=== PATIENT | female | born 1945 | race Caucasian/White ===

== ENCOUNTER 2021-10-07 21:24 | Inpatient (IN) | payer MEDICARE, MEDICAID ==
[~2021-10-07] VITALS: Ht 154.9 cm; Wt 72.6 kg
[2021-10-07] MEDS ORDERED: MELATONIN 3 MG TABLET PO PRN (21:45)
[2021-10-07] MEDS ORDERED: MILK OF MAGNESIA 400 MG/5 ML 30 ML UDC PO PRN (21:45)
[2021-10-07] MEDS ORDERED: ONDANSETRON 4 MG/2 ML (SDV) Z0FRAN IV PRN (21:45)
[2021-10-07] MEDS ORDERED: VANCOMYCIN INJECTION 1,000 MG in NS (IVPB) 250 ML IV SCH (21:45)
[2021-10-07] MEDS ORDERED: diphenhydrAMINE 25 MG TAB (BENADRYL) PO PRN (21:45)
[2021-10-07] MEDS ORDERED: diphenhydrAMINE 50 MG/ML INJ (BENADRYL) IVP PRN (21:45)
[2021-10-07] MEDS ORDERED: MEROPENEM 1,000 MG in NS (IVPB) 100 ML IV SCH (21:45)
[2021-10-07] MEDS ORDERED: NS IV 1000 ML 1,800 ML IV ONE (21:45)
[2021-10-07] MEDS ORDERED: morphine INJ 4 MG/ML 1 ML (VIAL/SYRINGE) IV PRN (21:45)
[2021-10-07] MEDS ORDERED: CALCIUM CARBONATE 500 MG (TUMS) TAB.CHEW PO PRN (21:45)
[2021-10-07] MEDS ORDERED: LACTULOSE SYRUP 10GM/15ML (ENULOSE) 30ML UDC PO PRN (21:45)
[2021-10-07] MEDS ORDERED: polyethylene glycoL POWDER 17 GM (MIRALAX) PACK PO PRN (21:45)
[2021-10-07] MEDS ORDERED: BISACODYL 10 MG SUPP (DULCOLAX) PR PRN (21:45)
[2021-10-07] MEDS ORDERED: ONDANSETRON 4 MG (ZOFRAN) ORAL DISSOLVE TAB PO PRN (21:45)
[2021-10-07] MEDS ORDERED: ANTACID SUSP 30 ML UDC (MYLANTA) PO PRN (21:45)
[2021-10-07] MEDS ORDERED: ACETAMINOPHEN 325 MG TABLET PO PRN (21:45)
[2021-10-07] MEDS ORDERED: ENOXAPARIN 100 MG/1 ML (LOVENOX) SYR SC SCH (21:45)
[2021-10-08] VITALS (7 sets, daily range): BP systolic 124–161; BP diastolic 58–82
[2021-10-08] MEDS ORDERED: ENOXAPARIN 40 MG/0.4 ML (LOVENOX) SYR SC SCH (02:30)
[2021-10-08 02:32] LABS: ABG BASE EXCESS -5.5 MMOL/L (-2.5-2.5); ABG OXYGEN SATURATION 56 % (94-100); ABG PCO2 38 MMHG (35-45); ABG TCO2 20.3 MMOL/L (21.0-31.0)
--- NOTE | 2021-10-08 02:37 | Tele-ICU Consult ---
History of Present Illness History of Present Illness Date Seen by Provider: Oct 08, 2021 Time Seen by Provider: 02:30 Date of Admission 76 y old lady presented with acute hyppoxemic resp failure in the context of COVID ( diuagnosed 3 weeks ago). Pt came as a direct admission and was started on BIPAP 14//60%. Pt is not able to have dialogue due to bipapa; info obtained from the bed side RN. Allergies and Home Medications Allergies Coded Allergies: codeine (Verified Allergy, Unknown, 10/07/21) Past Medical/Social/Family Hx Past Medical History COVID+ Review of Systems Constitutional: see HPI Focused Exam Height, Weight, BMI Height: '" Weight: lbs. oz. kg; BMI Method: Exam Exam Patient acknowledged, consented, and participated in this virtual visit which was conducted using real time audio/video Vital Signs Date Time Temp Pulse Resp B/P (MAP) Pulse Ox O2 Delivery O2 Flow Rate FiO2 10/08/21 02:22 87 36 96 60.00 Height & Weight Height: '" Weight: lbs. oz. kg; BMI Method: General Appearance: Mild Distress Assessment/Plan Assessment/Plan Acute hypoxemic resp failure in the context of COVID PNA -continue BIPAP -may need to be intubated -decadrone+ remdesivir -d dimer -lovenox: duplex of lower ext/ ct pe protocol when stable -basic labs ordered. LAMONTE JI MD Oct 08, 2021 02:37
[2021-10-08 02:38] LABS: ABG PH 7.33 (7.37-7.43); ABG PO2 35 MMHG (79-93); ALLENS TEST YES-POS; INSPIRED O2 60; PATIENT TEMP 37.7; VENTILATOR NO
[2021-10-08] MEDS: NS IV 1000 ML 1,000 ML IV SCH ×3 (03:45→22:43)
[2021-10-08 03:54] LABS: ABG BASE EXCESS -6.8 MMOL/L (-2.5-2.5); ABG OXYGEN SATURATION 98 % (94-100); ABG PCO2 34 MMHG (35-45); ABG PH 7.35 (7.37-7.43); ABG PO2 93 MMHG (79-93); ABG TCO2 18.8 MMOL/L (21.0-31.0)
[2021-10-08 03:57] LABS: INSPIRED O2 60% BIPAP; PATIENT TEMP 37.4; VENTILATOR NO
[2021-10-08] MEDS ORDERED: ENOXAPARIN 100 MG/1 ML (LOVENOX) SYR SC SCH (04:30)
[2021-10-08 04:40] LABS: BASOPHILS % (AUTO) 0 % (0-10); EOSINOPHILS % (AUTO) 0 % (0-10); HEMATOCRIT 42 % (35-52); HEMOGLOBIN 12.6 g/dL (11.5-16.0); LYMPHOCYTES # (AUTO) 0.7 10^3/uL (1.0-4.0); LYMPHOCYTES % (AUTO) 6 % (12-44); MEAN CORPUSCULAR HEMOGLOBIN 25 pg (25-34); MEAN CORPUSCULAR HGB CONC 30 g/dL (32-36); MEAN CORPUSCULAR VOLUME 83 fL (80-99); MEAN PLATELET VOLUME 10.4 fL (9.0-12.2); MONOCYTES # (AUTO) 0.5 10^3/uL (0.0-1.0); MONOCYTES % (AUTO) 4 % (0-12); NEUTROPHILS # (AUTO) 11.1 10^3/uL (1.8-7.8); NEUTROPHILS % (AUTO) 89 % (42-75); PLATELET COUNT 227 10^3/uL (130-400); WHITE BLOOD COUNT 12.5 10^3/uL (4.3-11.0)
[2021-10-08 04:43] LABS: ALBUMIN 2.9 GM/DL (3.2-4.5)
[2021-10-08 04:44] LABS: POTASSIUM 4.1 MMOL/L (3.6-5.0)
[2021-10-08 04:45] LABS: CALCIUM 8.5 MG/DL (8.5-10.1)
[2021-10-08 04:46] LABS: TOTAL PROTEIN 7.3 GM/DL (6.4-8.2)
[2021-10-08 04:48] LABS: BILIRUBIN,TOTAL 0.4 MG/DL (0.1-1.0)
[2021-10-08 04:49] LABS: PHOSPHORUS 2.1 MG/DL (2.3-4.7)
[2021-10-08 04:50] LABS: CREATININE SERUM 0.99 MG/DL (0.60-1.30)
[2021-10-08 04:52] LABS: MAGNESIUM 2.3 MG/DL (1.6-2.4)
[2021-10-08] MEDS ORDERED: VANCOMYCIN INJECTION 1,250 MG in NS (IVPB) 250 ML IV ONE (05:00)
[2021-10-08] MEDS: POTASSIUM CL 10MEQ/50ML IVPB 50 ML IV SCH (05:06)
[2021-10-08] MEDS: MAGNESIUM 1 GM/100 ML IVPB 100 ML IV SCH (05:06)
[2021-10-08] MEDS: KCL 20 MEQ TAB (K-DUR) PO SCH (05:07)
[2021-10-08] MEDS: inSUlin ASPART (NovoLOG) 1 UNIT/0.01 ML (CHARGE PER UNIT) SC SCH ×4 (05:10→22:43)
[2021-10-08] MEDS: MEROPENEM 500 MG/NS 100 ML IVPB IV SCH ×6 (05:25→22:43)
[2021-10-08 05:28] LABS: ELLIPT/OVALOCYTES SLIGHT; EOSINOPHILS % (MANUAL) 1 %; LYMPHOCYTES % (MANUAL) 10 %; MICROCYTOSIS SLIGHT; MONOCYTES % (MANUAL) 3 %; NEUTROPHILS % (MANUAL) 86 %
--- NOTE | 2021-10-08 06:20 | History & Physical-Hospitalist ---
History of Present Illness HPI/Chief Complaint Chief complaint: Acute hypoxic respiratory failure with UTI with ESBL history History of present illness: This is a 76-year-old white female who resides in a [place] [facility] [place] who had just been released from quarantine from COVID-19 but became confused and hypotensive and hypoxic so she was brought [place] [facility] after her daughter was updated on the status and offered to place her on comfort care and allow " nature to take its course" due to her chronic debility but daughter wanted her treated and at that point remained a full code. She was assessed to have UTI and sepsis with ESBL history so meropenem was started along with vancomycin to cover for Enterococcus and she is currently on BiPAP with settings of 14/8 at 65% with IV fluids for sepsis. Decadron was initiated and she remains very lethargic and very fragile and very chronically ill and debilitated. I did have a 15-minute conversation with the daughter and it was decided that we would continue the current treatment but if she worsens we would put her on comfort care we decided on DO NOT INTUBATE and DO NOT RESUSCITATE. Source: RN/MD Exam Limitations: clinical condition Date Seen 10/08/21 Time Seen by a Provider: 10:00 Attending Physician Naina Abdi DO PCP No,Local Physician Referring Physician Date of Admission Oct 08, 2021 at 01:52 Home Medications & Allergies Home Medications Reviewed patient Home Medication Reconciliation performed by pharmacy medication reconciliations quality control lab technician and/or nursing. Patients Allergies have been reviewed. Allergies Allergies Coded Allergies Sulfa (Sulfonamide Antibiotics) (Verified Allergy, Unknown, 10/08/21) codeine (Verified Allergy, Unknown, 10/07/21) Uncoded Allergies contrast dye ( Allergy, Unknown, 10/08/21) Past Dzgxmql-Qzcpfp-Uudgyx Hx Patient Social History Marrital Status: single Employed/Student: retired Smoking Status: Unknown if Ever Smoked Pt feels they are or have been: No Current Status Sensory deficits: Vision impairment Past Medical History High Cholesterol, Hypertension Dementia Kidney Infection, Bladder Infection Gastroesophageal Reflux, Irritable Bowel COVID+ Review of Systems ROS-Unable to Obtain: On BiPAP and confused Constitutional: see HPI Physical Exam Physical Exam Vital Signs Vital Signs - First Documented 10/07/21 10/08/21 21:41 02:00 Temp 37.7 Pulse 93 B/P (MAP) 148/89 O2 Delivery NIV Bilevel O2 Flow Rate 60.00 Capillary Refill : Less Than 3 Seconds Height, Weight, BMI Height: '" Weight: lbs. oz. kg; 27.75 BMI Method: General Appearance: Anxious, Chronically ill, Other (Confused) Eyes: Right Eye Normal Inspection, Right Eye PERRL HEENT: Other (BiPAP in place) Neck: Full Range of Motion, Normal Inspection, Non Tender Respiratory: Chest Non Tender, No Respiratory Distress, Accessory Muscle Use, Decreased Breath Sounds Cardiovascular: Regular Rate, Rhythm, No Edema, No Gallop, No JVD, No Murmur, Normal Peripheral Pulses Gastrointestinal: Normal Bowel Sounds, No Organomegaly, No Pulsatile Mass, Non Tender, Soft Back: Normal Inspection, No CVA Tenderness, No Vertebral Tenderness Extremity: Normal Capillary Refill, Normal Inspection, Normal Range of Motion, Non Tender, No Calf Tenderness, No Pedal Edema Neurologic/Psychiatric: Alert, No Motor/Sensory Deficits, Normal Mood/Affect, Disoriented Skin: Normal Color, Warm/Dry Lymphatic: No Adenopathy Results Results/Procedures Labs Laboratory Tests 10/08/21 04:23 10/09/21 04:20 Patient resulted labs reviewed. Assessment/Plan Admission Diagnosis Assessment: Acute hypoxic respiratory failure COVID-19 pneumonia Dementia UTI with ESBL history placed on meropenem and vancomycin empirically DNR/DNI after discussion with daughter Diabetes Hypertension Hyperlipidemia Irritable bowel syndrome constipation predominant Plan: BiPAP IV antibiotics Decadron Oxygen Admission Status: Inpatient Order (span 2 midnights) Reason for Inpatient Admission: Respiratory failure Diagnosis/Problems Diagnosis/Problems (1) COVID (2) UTI due to extended-spectrum beta lactamase (ESBL) producing Escherichia coli (3) Dementia (4) Acute respiratory failure with hypoxia (5) Sepsis NAINA ABDI DO Oct 08, 2021 06:20
--- NOTE | 2021-10-08 07:46 | Diagnostic Imaging Report ---
CHEST 1 VIEW, AP/PA ONLY Indication: Pneumonia Comparison: None available. Findings: There are few ill-defined opacities throughout both lungs. No pleural effusion or pneumothorax. Heart is not enlarged. Impression: 1. Bilateral ill-defined pulmonary opacities could be due to multifocal pneumonia, as per provided history. Advise followup PA and lateral chest radiographs in 4 weeks after appropriate medical management to ensure resolution. Dictated by: Dictated on workstation # [id number]
[2021-10-08] MEDS: ENOXAPARIN 100 MG/1 ML (LOVENOX) SYR SC SCH ×2 (08:32→22:44)
[2021-10-08] MEDS ORDERED: REMDESIVIR INJ 200 MG in NS (IVPB) 210 ML IV NR (09:00)
[2021-10-08] MEDS: guaiFENesin (MUCINEX) 600 MG TAB PO SCH ×2 (09:49→21:43)
[2021-10-08] MEDS: ASPIRIN E.C. 81 MG (ECOTRIN) TAB PO SCH (09:49)
[2021-10-08] MEDS: DOCUSATE SODIUM 100 MG (COLACE) CAP PO SCH ×2 (09:49→21:43)
[2021-10-08] MEDS: SENNOSIDES 8.6 MG (SENOKOT) TAB PO SCH ×2 (09:50→21:43)
[2021-10-08] MEDS ORDERED: RT-ALBUTEROL HFA 8.5 GM INHALER IH PRN ×2 (10:00→10:15)
--- NOTE | 2021-10-08 11:03 | Diagnostic Imaging Report ---
EXAMINATION: US Venous Lower Ext Timoteo. TECHNIQUE: Multiple real-time grayscale images were obtained over the lower extremities in various projections, bilaterally. Additional duplex Doppler and color Doppler images were also obtained. HISTORY: Swelling FINDINGS: No comparison available. The femoral vein and popliteal veins are patent bilaterally. On the left no flow is seen in the calf veins. Right-sided calf veins are patent. IMPRESSION: 1. Deep venous thrombosis of the left-sided calf veins. Dictated by: Dictated on workstation # [id number]
--- NOTE | 2021-10-08 11:59 | Tele-ICU Progress Note ---
Subjective Date Seen by a Provider: Oct 08, 2021 Time Seen by a Provider: 11:59 Sepsis Event Evaluation Height, Weight, BMI Height: '" Weight: lbs. oz. kg; 27.75 BMI Method: Focused Exam Lactate Level 10/08/21 04:23: Lactic Acid Level 1.41 Exam Exam Patient acknowledged, consented, and participated in this virtual visit which was conducted using real time audio/video Vital Signs Date Time Temp Pulse Resp B/P (MAP) Pulse Ox O2 Delivery O2 Flow Rate FiO2 10/08/21 11:00 66 21 133/66 96 NIV Bilevel 60.00 10/08/21 10:50 66 23 95 55.00 10/08/21 10:00 66 21 129/62 97 NIV Bilevel 60.00 10/08/21 09:46 37.4 65 95 60 10/08/21 09:00 65 21 124/59 95 NIV Bilevel 60.00 10/08/21 08:00 70 24 95 60.00 10/08/21 08:00 97 NIV Bilevel 60 10/08/21 08:00 71 24 122/61 95 NIV Bilevel 60.00 10/08/21 07:00 75 10/08/21 07:00 74 25 161/68 97 NIV Bilevel 60.00 10/08/21 06:00 78 21 147/70 97 NIV Bilevel 60.00 10/08/21 05:00 82 29 154/70 97 NIV Bilevel 60.00 10/08/21 04:21 95 NIV Bilevel 60 10/08/21 03:45 87 28 159/69 98 NIV Bilevel 60.00 10/08/21 03:30 37.4 10/08/21 03:15 86 29 146/79 96 NIV Bilevel 60.00 10/08/21 02:45 85 29 153/71 97 NIV Bilevel 60.00 10/08/21 02:30 86 23 129/77 95 NIV Bilevel 60.00 10/08/21 02:22 87 36 96 60.00 10/08/21 02:19 85 10/08/21 02:15 87 29 161/82 95 NIV Bilevel 60.00 10/08/21 02:00 93 32 148/89 95 NIV Bilevel 60.00 10/08/21 01:52 37.7 10/08/21 01:52 95 NIV Bilevel 60 10/08/21 01:52 37.7 28 96 NIV Bilevel 60.00 10/07/21 21:41 37.7 NIV Bilevel 60.00 I & O 10/08/21 07:00 Intake Total 25 ml Output Total 450 ml Balance -425 ml Height & Weight Height: '" Weight: lbs. oz. kg; 27.75 BMI Method: General Appearance: Mild Distress Capillary Refill: Less Than 3 Seconds Results Lab Laboratory Tests 10/08/21 04:23 Assessment/Plan Assessment/Plan (Tele-ICU Physician , Progress Note ) Available chart/ vitals / labs / Images reviewed Video assessment done using teleICU camera, rest of exam as per RN Discussed with RN , EXAM PER RN Events overnight : Afebrile FiO2 - I/O = Drips: Pressors: levo Consultants: Hospital course: 10/07 BIPAP 14/8/60%. ARF , post COVID A/P AHRF / ARDS due to severe COVID19 -BIPAP 14/8/60%. rr24 tv 600 MV 11L -prone position if able - conservative fluid strategy (aim for even or negative fluid balance [id number]-4/COVID-19 PNA - dx 3 weeks ORGAN RECOVERY COORDINATOR ago). unvaccinted --Dexamethasone -Hypercoagulable state -> lovenox full dose 10/07 , LE pending Monitor for superimposed bact PNA -10/07 Merrem Vanco Lines : (Central Line Necessity Reviewed) Ochoa: OG: Nutrition: Analgesia: Anxiety/ delirium VTE Prophylaxis: ronel full dose Stress Ulcer Prophylaxis: Glycemic Control: Plans in collaboration with bedside consultants and IM MDs. Discussed with RN to reach out if any questions or concerns A total of _ minutes of critical care time was devoted to this patient today, required to treat and/or prevent further deterioration of critical care condition ( as above) . CJ PERKINS MD Oct 08, 2021 11:59
[2021-10-08] MEDS: RT-ALBUTEROL HFA 8.5 GM INHALER IH SCH ×3 (13:53→21:35)
--- NOTE | 2021-10-08 14:26 | Consultation-Cardiology ---
HPI-Cardiology Cardiology Consultation: Date of Consultation 10/08/21 Time Seen by a Provider: 13:30 Date of Admission Attending Physician Naina Abdi DO Admitting Physician No,Local Physician Consulting Physician MADONNA MEDRANO MD, MA, FACP, FACC, FSCAI, CCDS Physicin requesting consult: Dr Abdi HPI: Chief Complaint: Reason for Cardiology consult: Elevated troponin 76 [address] woman admitted by Dr Abdi to her service for treatment of ac resp failure after having recently been diagnosed with COVID-19. She is currently on BiPAP and somewhat somnolent. Communication is difficult. She denies cp or palp or syncope. Does report shortness of breath. Denies n/v. Denies palp or syncope. Denies prior cardiac history Review of Systems-Cardiology Review of Systems Constitutional: other (communication limited because patient on BiPAP and is somnolent. To the extent a review of systems could be obtained is given above in HPI) PLO-Iordos-Qnrctk Hx Patient Social History Smoking Status: Never a Smoker Pt feels they are or have been: No Past Medical History PMH As described under Assessment. Family Medical History Family Medical History: Does not report fam h/o early CAD Allergies and Home Medications Allergies Coded Allergies: Sulfa (Sulfonamide Antibiotics) (Verified Allergy, Unknown, 10/08/21) codeine (Verified Allergy, Unknown, 10/07/21) Uncoded Allergies: contrast dye (Allergy, Unknown, 10/08/21) Patient Home Medication List Home Medication List Reviewed: Yes Physical Exam-Cardiology Physical Exam Vital Signs/I&O 10/08/21 10/08/21 10/08/21 10/08/21 02:22 02:30 02:45 03:15 Pulse 87 86 85 86 Resp 36 23 29 29 B/P (MAP) 129/77 153/71 146/79 Pulse Ox 96 95 97 96 O2 Delivery NIV Bilevel NIV Bilevel NIV Bilevel O2 Flow Rate 60.00 60.00 60.00 60.00 10/08/21 10/08/21 10/08/21 10/08/21 03:30 03:45 04:21 05:00 Temp 37.4 Pulse 87 82 Resp 28 29 B/P (MAP) 159/69 154/70 Pulse Ox 98 95 97 O2 Delivery NIV Bilevel NIV Bilevel NIV Bilevel O2 Flow Rate 60.00 60.00 FiO2 60 10/08/21 10/08/21 10/08/21 10/08/21 06:00 07:00 07:00 08:00 Pulse 78 74 75 71 Resp 21 25 24 B/P (MAP) 147/70 161/68 122/61 Pulse Ox 97 97 95 O2 Delivery NIV Bilevel NIV Bilevel NIV Bilevel O2 Flow Rate 60.00 60.00 60.00 10/08/21 10/08/21 10/08/21 10/08/21 08:00 08:00 08:00 09:00 Temp 37.0 Pulse 70 65 Resp 24 21 B/P (MAP) 124/59 Pulse Ox 97 95 95 O2 Delivery NIV Bilevel NIV Bilevel O2 Flow Rate 60.00 60.00 FiO2 60 10/08/21 10/08/21 10/08/21 10/08/21 09:46 10:00 10:50 11:00 Temp 37.4 Pulse 65 66 66 66 Resp 21 23 21 B/P (MAP) 129/62 133/66 Pulse Ox 95 97 95 96 O2 Delivery NIV Bilevel NIV Bilevel O2 Flow Rate 60.00 55.00 60.00 FiO2 60 10/08/21 10/08/21 10/08/21 10/08/21 12:00 12:00 12:00 12:49 Temp 37.0 Pulse 70 73 Resp 25 B/P (MAP) 141/62 Pulse Ox 98 97 O2 Delivery NIV Bilevel NIV Bilevel O2 Flow Rate 60.00 FiO2 60 10/08/21 10/08/21 10/08/21 13:00 13:53 14:20 Pulse 70 70 Resp 32 22 B/P (MAP) 142/66 Pulse Ox 98 96 O2 Delivery NIV Bilevel NIV Bilevel O2 Flow Rate 60.00 40.00 45.00 10/08/21 00:00 Intake Total 0 ml Balance 0 ml Capillary Refill : Less Than 3 Seconds Constitutional: other (on BiPAP, somnolent, does answer questions in monosyllables, appears oriented x 3, appears thin and frail) HEENT: PERRL, other (edentulous jaws), EOMI, hearing is well preserved Neck: non-tender, carotid pulses are 2 + bilaterally Respiratory: accessory muscle use, other (fair air entry, scattered wheezes, diminished air entry at the bases) Cardiovascular: regular rate-rhythm, S1 and S2, systolic murmur (soft VALERIA at the card base) Gastrointestinal: No tender; soft; No guarding, No rebound; audible bowel sounds Extremities: No clubbing, No cyanosis, No significant edema Neurologic/Psychiatric: other (moves all limbs equally) Skin: warm/dry; No rash on exposed areas Data Review Labs Laboratory Tests 10/08/21 02:25: Blood Gas Puncture Site RIGHT RAD, Blood Gas Patient Temperature 37.7, Arterial Blood pH 7.33*L, Arterial Blood Partial Pressure CO2 38, Arterial Blood Partial Pressure O2 35*L, Arterial Blood HCO3 19L, Arterial Blood Total CO2 20.3L, Arterial Blood Oxygen Saturation 56L, Arterial Blood Base Excess -5.5L, Arash Test YES-POS, Blood Gas Ventilator Setting NO, Blood Gas Inspired Oxygen 60 10/08/21 03:40: Blood Gas Puncture Site L BRACH, Blood Gas Patient Temperature 37.4, Arterial Blood pH 7.35L, Arterial Blood Partial Pressure CO2 34L, Arterial Blood Partial Pressure O2 93, Arterial Blood HCO3 18L, Arterial Blood Total CO2 18.8L, Arterial Blood Oxygen Saturation 98, Arterial Blood Base Excess -6.8L, Arash Test NA, Blood Gas Ventilator Setting NO, Blood Gas Inspired Oxygen 60% BIPAP 10/08/21 04:23: White Blood Count 12.5H, Red Blood Count 5.05, Hemoglobin 12.6, Hematocrit 42, Mean Corpuscular Volume 83, Mean Corpuscular Hemoglobin 25, Mean Corpuscular Hemoglobin Concent 30L, Red Cell Distribution Width 17.8H, Platelet Count 227, Mean Platelet Volume 10.4, Immature Granulocyte % (Auto) 1, Neutrophils (%) (Auto) 89H, Lymphocytes (%) (Auto) 6L, Monocytes (%) (Auto) 4, Eosinophils (%) (Auto) 0, Basophils (%) (Auto) 0, Neutrophils # (Auto) 11.1H, Lymphocytes # (Auto) 0.7L, Monocytes # (Auto) 0.5, Eosinophils # (Auto) 0.0, Basophils # (Auto) 0.0, Immature Granulocyte # (Auto) 0.1, Neutrophils % (Manual) 86, Lymphocytes % (Manual) 10, Monocytes % (Manual) 3, Eosinophils % (Manual) 1, Microcytosis SLIGHT, Elliptocytes SLIGHT, D-Dimer 7.27H, Sodium Level 150H, Potassium Level 4.1, Chloride Level 119H, Carbon Dioxide Level 18L, Anion Gap 13, Blood Urea Nitrogen 42H, Creatinine 0.99, Estimat Glomerular Filtration Rate 59, BUN/Creatinine Ratio 42, Glucose Level 83, Lactic Acid Level 1.41, Calcium Level 8.5, Corrected Calcium 9.4, Phosphorus Level 2.1L, Magnesium Level 2.3, Total Bilirubin 0.4, Aspartate Amino Transf (AST/SGOT) 23, Alanine Aminotr ansferase (ALT/SGPT) 11, Alkaline Phosphatase 75, Troponin I 0.034H, Total Prot ein 7.3, Albumin 2.9L, Procalcitonin 0.23H 10/08/21 11:18: Glucometer 123H Laboratory Tests 10/08/21 04:23 A/P-Cardiology Assessment/Admission Diagnosis Ac resp failure due to COVID pneumonia - managed by Dr Jin Cruz, type 2 MS due hypoxia due to COVID pneumonia Discussion and Recomendations * There is no clinical evidence of ACS of type 1 MS * We recommend treatment of COVID-19 pneumonia and avoidance of hypoxia MADONNA MEDRANO MD FACP FAC CCDS Oct 08, 2021 14:26
[2021-10-09 02:38] VITALS: BP 157/71
[2021-10-09] MEDS: RT-ALBUTEROL HFA 8.5 GM INHALER IH SCH ×6 (02:38→22:48)
[2021-10-09 04:31] LABS: BASOPHILS % (AUTO) 0 % (0-10); EOSINOPHILS % (AUTO) 0 % (0-10); HEMATOCRIT 39 % (35-52); HEMOGLOBIN 11.6 g/dL (11.5-16.0); LYMPHOCYTES # (AUTO) 0.5 10^3/uL (1.0-4.0); LYMPHOCYTES % (AUTO) 4 % (12-44); MEAN CORPUSCULAR HEMOGLOBIN 25 pg (25-34); MEAN CORPUSCULAR HGB CONC 30 g/dL (32-36); MEAN CORPUSCULAR VOLUME 83 fL (80-99); MEAN PLATELET VOLUME 10.8 fL (9.0-12.2); MONOCYTES # (AUTO) 0.5 10^3/uL (0.0-1.0); MONOCYTES % (AUTO) 4 % (0-12); NEUTROPHILS # (AUTO) 11.6 10^3/uL (1.8-7.8); NEUTROPHILS % (AUTO) 91 % (42-75); PLATELET COUNT 237 10^3/uL (130-400); WHITE BLOOD COUNT 12.7 10^3/uL (4.3-11.0)
[2021-10-09 04:57] LABS: ALBUMIN 2.6 GM/DL (3.2-4.5)
[2021-10-09 04:58] LABS: CALCIUM 8.4 MG/DL (8.5-10.1)
[2021-10-09 05:00] LABS: TOTAL PROTEIN 6.6 GM/DL (6.4-8.2)
[2021-10-09 05:01] LABS: BILIRUBIN,TOTAL 0.3 MG/DL (0.1-1.0)
[2021-10-09 05:03] LABS: CREATININE SERUM 0.87 MG/DL (0.60-1.30); PHOSPHORUS 2.5 MG/DL (2.3-4.7)
[2021-10-09 05:06] LABS: MAGNESIUM 2.1 MG/DL (1.6-2.4)
[2021-10-09] MEDS: VANCOMYCIN 1 GM/NS 250 ML IVPB IV SCH ×2 (05:57)
[2021-10-09] MEDS: KCL 20 MEQ TAB (K-DUR) PO SCH (05:57)
[2021-10-09] MEDS: MAGNESIUM 1 GM/100 ML IVPB 100 ML IV SCH (05:57)
[2021-10-09] MEDS: POTASSIUM CL 10MEQ/50ML IVPB 50 ML IV SCH (05:57)
[2021-10-09] MEDS: MEROPENEM 500 MG/NS 100 ML IVPB IV SCH ×6 (05:57→21:59)
[2021-10-09] MEDS: inSUlin ASPART (NovoLOG) 1 UNIT/0.01 ML (CHARGE PER UNIT) SC SCH ×4 (05:57→21:59)
[2021-10-09 07:15] VITALS: BP 146/57
[2021-10-09] MEDS ORDERED: REMDESIVIR INJ 100 MG in NS (IVPB) 230 ML IV SCH (09:00)
[2021-10-09] MEDS ORDERED: MAGN400O7 PO (09:14)
[2021-10-09] MEDS ORDERED: BISA10SU8 RC (09:14)
[2021-10-09] MEDS ORDERED: ASPI-999 PO (09:14)
[2021-10-09] MEDS ORDERED: BUSP5TAB59 PO ×2 (09:14)
[2021-10-09] MEDS ORDERED: FOLI1TAB33 PO (09:14)
[2021-10-09] MEDS ORDERED: ALB0.5V INH (09:14)
[2021-10-09] MEDS ORDERED: ATOR20TA66 PO (09:14)
[2021-10-09] MEDS ORDERED: ACHD5005 PO (09:14)
[2021-10-09] MEDS ORDERED: LINA290C PO (09:14)
[2021-10-09] MEDS ORDERED: GABA300C PO (09:14)
[2021-10-09] MEDS ORDERED: MELA3TAB39 PO (09:14)
[2021-10-09] MEDS ORDERED: MAGN400T39 PO (09:14)
[2021-10-09] MEDS ORDERED: AMT10T PO (09:14)
[2021-10-09] MEDS ORDERED: POLY15DR27 OU (09:14)
[2021-10-09] MEDS ORDERED: INSU100I29 SC (09:14)
[2021-10-09] MEDS ORDERED: BUPR300T98 PO (09:14)
[2021-10-09] MEDS ORDERED: CRAN250C2 PO (09:14)
[2021-10-09] MEDS ORDERED: NYST60PO TOP (09:15)
[2021-10-09] MEDS ORDERED: SUMA5SPR6 NS (09:15)
[2021-10-09] MEDS ORDERED: OMEP40CA6 PO (09:15)
[2021-10-09] MEDS ORDERED: POTA-179 PO (09:15)
[2021-10-09] MEDS ORDERED: ONDA-105 PO (09:15)
[2021-10-09] MEDS ORDERED: NYST15CR TOP (09:15)
[2021-10-09] MEDS ORDERED: TOPI50TA13 PO (09:15)
[2021-10-09] MEDS ORDERED: MIRT45TA75 PO (09:15)
[2021-10-09] MEDS ORDERED: TRAZ-227 PO (09:15)
[2021-10-09] MEDS ORDERED: INSU100I14 SC (09:15)
[2021-10-09] MEDS ORDERED: ACET-2267 PO (09:15)
[2021-10-09] MEDS ORDERED: MULT-1136 PO (09:15)
[2021-10-09] MEDS ORDERED: GUAI5SYR PO (09:15)
--- NOTE | 2021-10-09 09:19 | Progress Note - Cardiology ---
Cardiology SOAP Progress Note Subjective: Lying in bed with the CPAP on Unable to communicate except for nodding of her head Objective: I&O/Vital Signs 10/09/21 10/09/21 10/09/21 10/09/21 05:00 06:00 07:00 07:00 Pulse 74 74 73 75 Resp 31 19 B/P (MAP) 167/72 160/71 141/64 Pulse Ox 95 92 95 O2 Delivery NIV Bilevel NIV Bilevel NIV Bilevel O2 Flow Rate 45.00 45.00 45.00 10/09/21 10/09/21 10/09/21 10/09/21 07:15 07:54 08:00 08:00 Temp 36.3 Pulse 75 74 Resp 22 26 B/P (MAP) 154/66 Pulse Ox 93 92 O2 Delivery NIV Bilevel NIV Bilevel O2 Flow Rate 45.00 25.00 25.00 10/09/21 10/09/21 10/09/21 10/09/21 09:00 09:48 10:00 10:34 Pulse 77 73 70 Resp 37 37 28 B/P (MAP) 148/69 147/113 Pulse Ox 91 98 97 O2 Delivery NIV Bilevel NIV Bilevel O2 Flow Rate 25.00 55.00 55.00 55.00 10/09/21 10/09/21 10/09/21 10/09/21 11:00 12:00 12:00 12:54 Temp 36.6 Pulse 71 69 75 Resp 30 28 B/P (MAP) 166/64 167/67 Pulse Ox 94 95 O2 Delivery NIV Bilevel NIV Bilevel O2 Flow Rate 55.00 55.00 10/09/21 10/09/21 10/09/21 10/09/21 13:00 14:00 15:00 15:07 Pulse 71 70 68 70 Resp 29 30 31 26 B/P (MAP) 159/67 157/64 Pulse Ox 94 98 94 94 O2 Delivery NIV Bilevel NIV Bilevel NIV Bilevel O2 Flow Rate 55.00 55.00 55.00 55.00 10/08/21 23:59 Intake Total 0 ml Output Total 475 ml Balance -475 ml Constitutional: other (on BiPAP, somnolent, does answer questions in monosyllables, appears oriented x 3, appears thin and frail) Respiratory: accessory muscle use, other (fair air entry, scattered wheezes, diminished air entry at the bases) Cardiovascular: regular rate-rhythm, S1 and S2, systolic murmur (soft VALERIA at the card base) Gastrointestional: No tender; soft; No guarding, No rebound; audible bowel sounds Extremities: No clubbing, No cyanosis, No significant edema Neurologic/Psychiatric: other (moves all limbs equally) Skin: warm/dry; No rash on exposed areas Results/Procedures: Labs Laboratory Tests 10/08/21 22:13: Glucometer 147H 10/09/21 04:20: White Blood Count 12.7H, Red Blood Count 4.69, Hemoglobin 11.6, Hematocrit 39, Mean Corpuscular Volume 83, Mean Corpuscular Hemoglobin 25, Mean Corpuscular Hemoglobin Concent 30L, Red Cell Distribution Width 17.9H, Platelet Count 237, Mean Platelet Volume 10.8, Immature Granulocyte % (Auto) 1, Neutrophils (%) (Auto) 91H, Lymphocytes (%) (Auto) 4L, Monocytes (%) (Auto) 4, Eosinophils (%) (Auto) 0, Basophils (%) (Auto) 0, Neutrophils # (Auto) 11.6H, Lymphocytes # (Auto) 0.5L, Monocytes # (Auto) 0.5, Eosinophils # (Auto) 0.0, Basophils # (Auto) 0.0, Immature Granulocyte # (Auto) 0.1, Sodium Level 151H, Potassium Level 4.0, Chloride Level 121H, Carbon Dioxide Level 14L, Anion Gap 16H, Blood Urea Nitrogen 37H, Creatinine 0.87, Estimat Glomerular Filtration Rate 69, BUN/Creatinine Ratio 43, Glucose Level 198H, Calcium Level 8.4L, Corrected Calcium 9.5, Phosphorus Level 2.5, Magnesium Level 2.1, Total Bilirubin 0.3, Aspartate Amino Transf (AST/SGOT) 22, Alanine Aminotransferase (ALT/SGPT) 12, Alkaline Phosphatase 86, Total Protein 6.6, Albumin 2.6L 10/09/21 10:25: Glucometer 164H Microbiology 10/08/21 MRSA Screen - Final, Complete A/P: Assessment: Ac resp failure due to COVID pneumonia - managed by Dr Jin Cruz, type 2 PA due hypoxia due to COVID pneumonia Plan: * There is no clinical evidence of ACS of type 1 PA * We recommend treatment of COVID-19 pneumonia and avoidance of hypoxia * Monitor lab, replace electrolytes as indicated Physician Assessment Physician Assessment I evaluated this pt collaboratively with the Cardiology team. To limit COVID exposure of the team, physical exam was performed by only one member (Geoff Ramirez APRN). Our Assessment and Plan are listed above DUSTIN RAMIREZ Oct 09, 2021 09:19 MADONNA MEDRANO MD [facility] Oct 09, 2021 16:05
[2021-10-09] MEDS ORDERED: MAGN296S71 PO (09:32)
[2021-10-09] MEDS: FAMOTIDINE 20MG/2ML IV (PEPCID) IVP SCH (09:45)
[2021-10-09] MEDS: ENOXAPARIN 100 MG/1 ML (LOVENOX) SYR SC SCH ×2 (09:45→21:59)
[2021-10-09] MEDS: ASPIRIN E.C. 81 MG (ECOTRIN) TAB PO SCH (09:46)
[2021-10-09] MEDS: guaiFENesin (MUCINEX) 600 MG TAB PO SCH ×2 (09:46→22:00)
[2021-10-09] MEDS: DOCUSATE SODIUM 100 MG (COLACE) CAP PO SCH ×2 (09:46→22:00)
[2021-10-09] MEDS: NS IV 1000 ML 1,000 ML IV SCH ×2 (09:46→14:39)
[2021-10-09] MEDS: SENNOSIDES 8.6 MG (SENOKOT) TAB PO SCH ×2 (09:46→21:59)
[2021-10-09 10:34] VITALS: BP 157/64
--- NOTE | 2021-10-09 10:59 | Tele-ICU Progress Note ---
Subjective Date Seen by a Provider: Oct 09, 2021 Time Seen by a Provider: 09:50 Subjective/Events-last exam This virtual visit was conducted using real time audio/video. Thank you for asking us to see this patient for respiratory insufficiency due to Covid pna. Also L DVT noted on US. Recent events: L DVT 10/08. PE: Obese. VSS. O2 sat 97% on BiPAP 14/8 55%. HEENT: No obvious masses, adenopathy or JVD. Chest: Diminished, coarse sounds on auscultation. CV: RRR S1 S2 No murmur or added sounds. Abd: Non-tender. Bowel sounds Y. : Unremarkable. Ochoa Y. CORRECTIONAL GUARD/psychiatric: Grossly intact. No obvious focal findings. Extremities: No edema. Capillary refill < 3 seconds. Skin: unremarkable. Results: Elevated Na 151, BUN 37, BG 198. Decreased Alb 2.6. B.36/34/93. CXR: B infilts.. Available chart/ vitals / labs / images reviewed. Video assessment done using teleICU camera, rest of exam as per RN. A/P: Respiratory insufficiency: Continue present management with BiPAP, Dex., Lovenox, BDs. D/C SCDs. Monitor for increasing oxygenation needs and/or need for intubation. Critical Care: critically ill patient. Cont. Merrem, Vanco., Remdesivir, SSI. Would change IVF to D5/0.45. Discussed with MARCELINO Kwong. Asked RN to reach out to eICU if any questions or concerns later. Time spent with patient/coordination of care with other health professionals (mins): 20 Sepsis Event Evaluation Height, Weight, BMI Height: '" Weight: lbs. oz. kg; 27.75 BMI Method: Focused Exam Lactate Level 10/08/21 04:23: Lactic Acid Level 1.41 Exam Exam Patient acknowledged, consented, and participated in this virtual visit which was conducted using real time audio/video Vital Signs Date Time Temp Pulse Resp B/P (MAP) Pulse Ox O2 Delivery O2 Flow Rate FiO2 10/09/21 10:34 70 28 97 55.00 10/09/21 10:00 73 37 147/113 98 NIV Bilevel 55.00 10/09/21 09:48 55.00 10/09/21 09:00 77 37 148/69 91 NIV Bilevel 25.00 10/09/21 08:00 36.3 10/09/21 08:00 74 26 154/66 92 NIV Bilevel 25.00 10/09/21 07:54 NIV Bilevel 25.00 10/09/21 07:15 75 22 93 45.00 10/09/21 07:00 75 19 141/64 95 NIV Bilevel 45.00 10/09/21 07:00 73 10/09/21 06:00 74 160/71 92 NIV Bilevel 45.00 10/09/21 05:00 74 31 167/72 95 NIV Bilevel 45.00 10/09/21 04:00 75 151/65 94 NIV Bilevel 45.00 10/09/21 04:00 96 NIV Bilevel 50 10/09/21 03:00 74 24 166/71 94 NIV Bilevel 45.00 10/09/21 02:40 NIV Bilevel 45.00 10/09/21 02:38 76 35 98 50.00 10/09/21 02:00 74 17 147/66 97 NIV Bilevel 50.00 10/09/21 01:00 78 10/09/21 01:00 78 27 153/65 98 NIV Bilevel 50.00 10/09/21 00:00 73 20 157/77 96 NIV Bilevel 50.00 10/08/21 23:43 96 NIV Bilevel 50 10/08/21 23:00 71 24 150/63 95 NIV Bilevel 50.00 10/08/21 22:00 68 21 126/50 93 NIV Bilevel 45.00 10/08/21 21:36 67 22 96 45.00 10/08/21 21:00 65 31 157/67 98 NIV Bilevel 45.00 10/08/21 20:00 97 NIV Bilevel 45 10/08/21 20:00 62 27 140/65 97 NIV Bilevel 45.00 10/08/21 19:45 36.8 10/08/21 19:01 61 31 97 45.00 10/08/21 19:00 63 30 125/61 94 NIV Bilevel 45.00 10/08/21 19:00 63 10/08/21 18:00 73 31 165/82 94 NIV Bilevel 45.00 10/08/21 17:00 65 32 131/79 94 NIV Bilevel 45.00 10/08/21 16:00 65 23 136/61 94 NIV Bilevel 45.00 10/08/21 16:00 97 NIV Bilevel 60 10/08/21 15:00 70 27 138/71 94 NIV Bilevel 45.00 10/08/21 14:20 NIV Bilevel 45.00 10/08/21 14:00 70 23 139/62 94 NIV Bilevel 60.00 10/08/21 13:53 70 22 96 45.00 10/08/21 13:00 70 32 142/66 98 NIV Bilevel 60.00 10/08/21 12:49 73 10/08/21 12:00 97 NIV Bilevel 60 10/08/21 12:00 70 25 141/62 98 NIV Bilevel 60.00 10/08/21 12:00 37.0 10/08/21 11:00 66 21 133/66 96 NIV Bilevel 60.00 I & O 10/09/21 07:00 Intake Total 0 ml Output Total 1500 ml Balance -1500 ml Height & Weight Height: '" Weight: lbs. oz. kg; 27.75 BMI Method: General Appearance: Anxious, Chronically ill, Other (Confused) HEENT: Other (BiPAP in place) Neck: Full Range of Motion, Normal Inspection, Non Tender Respiratory: Chest Non Tender, No Respiratory Distress, Accessory Muscle Use, Decreased Breath Sounds Cardiovascular: Regular Rate, Rhythm, No Edema, No Gallop, No JVD, No Murmur, Normal Peripheral Pulses Capillary Refill: Less Than 3 Seconds Extremity: Normal Capillary Refill, Normal Inspection, Normal Range of Motion, Non Tender, No Calf Tenderness, No Pedal Edema Neurologic/Psychiatric: Alert, No Motor/Sensory Deficits, Normal Mood/Affect, Disoriented Skin: Normal Color, Warm/Dry Lymphatic: No Adenopathy Results Lab Laboratory Tests 10/08/21 04:23 10/09/21 04:20 Assessment/Plan Assessment/Plan See free text. Critical Care: Critically Ill Patient LISY HODGE MD Oct 09, 2021 10:59
[2021-10-09 15:07] VITALS: BP 157/64
[2021-10-09] MEDS ORDERED: D5 1/2 NS 1000 ML IV SOLUTION 1,000 ML IV ONE (15:36)
[2021-10-09] MEDS: D5 1/2 NS 1000 ML IV SOLUTION 1,000 ML IV SCH (17:00)
--- NOTE | 2021-10-09 18:44 | Progress Note - Hospitalist ---
Subjective HPI/CC On Admission Date Seen by Provider: Oct 09, 2021 Time Seen by Provider: 11:40 Chief complaint: Acute hypoxic respiratory failure with UTI with ESBL history History of present illness: This is a 76-year-old white female [place] [facility] who had just been released from quarantine from [facility]- but became confused and hypotensive and hypoxic so she was brought to [facility] ER after her daughter was updated on the status and offered to place her on comfort care and allow " nature to take its course" due to her chronic debility but daughter wanted her treated and at that point remained a full code. She was assessed to have UTI and sepsis with ESBL history so merop enem was started along with vancomycin to cover for Enterococcus and she is currently on BiPAP with settings of 14/8 at 65% with IV fluids for sepsis. Decadron was initiated and she remains very lethargic and very fragile and very chronically ill and debilitated. I did have a 15-minute conversation with the daughter and it was decided that we would continue the current treatment but if she worsens we would put her on comfort care we decided on DO NOT INTUBATE and DO NOT RESUSCITATE. Subjective/Events-last exam She is on BiPAP. She appears fatigued. She says she is tired. She denies pain. She has no other complaints. Focused Exam Lactate Level 10/08/21 04:23: Lactic Acid Level 1.41 Objective Exam Vital Signs Vital Signs Date Time Temp Pulse Resp B/P (MAP) Pulse Ox O2 Delivery O2 Flow Rate FiO2 10/09/21 18:00 69 29 150/64 97 NIV Bilevel 55.00 10/09/21 16:00 36.1 10/09/21 04:00 50 Capillary Refill : Less Than 3 Seconds General Appearance: No Apparent Distress, WD/WN Respiratory: No Respiratory Distress, Decreased Breath Sounds, Other (wearing BiPAP) Cardiovascular: Regular Rate, Rhythm, No Edema, No Murmur Gastrointestinal: Normal Bowel Sounds, Non Tender, Soft Extremity: Normal Inspection, Non Tender, No Pedal Edema Neurologic/Psychiatric: Alert, Depressed Affect, Other (fatigued) Skin: Normal Color, Warm/Dry Results/Procedures Lab Laboratory Tests 10/09/21 04:20 Patient resulted labs reviewed. Imaging: Reviewed Imaging Report Assessment/Plan Assessment and Plan Assess & Plan/Chief Complaint Acute respiratory failure due to COVID-19 Hypercoagulable state associated with COVID-19 DVT associated with COVID-19 Continue BiPAP Decadron Lower extremity ultrasound showed DVT, indicates presumptive PE Therapeutic Lovenox DNR/DNI UTI History of ESBL Vancomycin and Merrem HTN HLD Chronic pain Anxiety Depression Continue home meds T2DM Levemir Sliding scale insulin Critical Care Critically Ill Patient Diagnosis/Problems Diagnosis/Problems (1) Acute respiratory failure due to COVID-19 Status: Acute (2) Hypercoagulable state associated with COVID-19 Status: Acute (3) Deep vein thrombosis (DVT) associated with COVID-19 Status: Acute (4) Obesity Status: Chronic (5) HTN (hypertension) Status: Chronic (6) HLD (hyperlipidemia) Status: Chronic (7) T2DM (type 2 diabetes mellitus) Status: Chronic (8) UTI (urinary tract infection) Status: Acute ROSETTA CANTU MD Oct 09, 2021 18:44
[2021-10-09 19:30] VITALS: BP 158/75
[2021-10-09] MEDS ORDERED: NON-FORMULARY MEDICATION 1 EA EA (Mirtazapine 45 MG) PO SCH (21:00)
[2021-10-09] MEDS ORDERED: NON-FORMULARY MEDICATION 1 EA EA (Topiramate 100 MG) PO SCH (21:00)
[2021-10-09] MEDS ORDERED: NON-FORMULARY MEDICATION 1 EA EA (Artificial Tears 1 DROP) OU SCH (21:00)
[2021-10-09] MEDS ORDERED: AMITRIPTYLINE 10 MG (ELAVIL) TAB PO SCH (21:00)
[2021-10-09] MEDS ORDERED: MIRTAZAPINE 15 MG (REMERON) TAB PO SCH (21:00)
[2021-10-09] MEDS ORDERED: busPIRone 5 MG (BUSPAR) TAB PO SCH (21:00)
[2021-10-09] MEDS: ARTIFICAL TEARS 0.4 ML UNIT DOSE (REFRESH PLUS) OU SCH (21:59)
[2021-10-09] MEDS: toPIRamate 100 MG (TOPAMAX) TAB PO SCH (21:59)
[2021-10-09] MEDS: GABAPENTIN 300 MG (NEURONTIN) CAP PO SCH (22:00)
[2021-10-09 22:48] VITALS: BP 129/69
[2021-10-10 02:43] VITALS: BP 146/58
[2021-10-10] MEDS: RT-ALBUTEROL HFA 8.5 GM INHALER IH SCH ×3 (02:43→10:53)
[2021-10-10] MEDS: D5 1/2 NS 1000 ML IV SOLUTION 1,000 ML IV SCH (04:32)
[2021-10-10 04:48] LABS: BASOPHILS % (AUTO) 0 % (0-10); EOSINOPHILS % (AUTO) 0 % (0-10); HEMATOCRIT 35 % (35-52); HEMOGLOBIN 10.7 g/dL (11.5-16.0); LYMPHOCYTES # (AUTO) 0.4 10^3/uL (1.0-4.0); LYMPHOCYTES % (AUTO) 4 % (12-44); MEAN CORPUSCULAR HEMOGLOBIN 25 pg (25-34); MEAN CORPUSCULAR HGB CONC 31 g/dL (32-36); MEAN CORPUSCULAR VOLUME 81 fL (80-99); MEAN PLATELET VOLUME 10.4 fL (9.0-12.2); MONOCYTES # (AUTO) 0.3 10^3/uL (0.0-1.0); MONOCYTES % (AUTO) 2 % (0-12); NEUTROPHILS # (AUTO) 11.4 10^3/uL (1.8-7.8); NEUTROPHILS % (AUTO) 93 % (42-75); PLATELET COUNT 250 10^3/uL (130-400); WHITE BLOOD COUNT 12.3 10^3/uL (4.3-11.0)
[2021-10-10] MEDS ORDERED: TROUGH ORDER-PHARMACY XX NR (05:00)
[2021-10-10 05:09] LABS: ALBUMIN 2.1 GM/DL (3.2-4.5); POTASSIUM 3.2 MMOL/L (3.6-5.0)
[2021-10-10 05:10] LABS: CALCIUM 7.9 MG/DL (8.5-10.1)
[2021-10-10 05:12] LABS: TOTAL PROTEIN 5.8 GM/DL (6.4-8.2)
[2021-10-10 05:13] LABS: BILIRUBIN,TOTAL 0.4 MG/DL (0.1-1.0)
[2021-10-10 05:15] LABS: CREATININE SERUM 0.77 MG/DL (0.60-1.30); PHOSPHORUS 1.3 MG/DL (2.3-4.7)
[2021-10-10 05:18] LABS: MAGNESIUM 1.7 MG/DL (1.6-2.4)
[2021-10-10 05:24] LABS: VANCOMYCIN,TROUGH 10.3 UG/ML (10.0-20.0)
[2021-10-10] MEDS: MAGNESIUM 1 GM/100 ML IVPB 100 ML IV SCH ×3 (06:06→06:18)
[2021-10-10] MEDS: POTASSIUM CL 10MEQ/50ML IVPB 50 ML IV SCH ×5 (06:06→09:00)
[2021-10-10] MEDS: KCL 20 MEQ TAB (K-DUR) PO SCH (06:06)
[2021-10-10] MEDS ORDERED: MAGNESIUM 1 GM/100 ML IVPB 200 ML IV ONE (06:08)
[2021-10-10] MEDS ORDERED: POTASSIUM CL 10MEQ/50ML IVPB 200 ML IV ONE (06:08)
[2021-10-10] MEDS: inSUlin ASPART (NovoLOG) 1 UNIT/0.01 ML (CHARGE PER UNIT) SC SCH (06:17)
[2021-10-10] MEDS: VANCOMYCIN 1 GM/NS 250 ML IVPB IV SCH ×2 (06:17)
[2021-10-10] MEDS: MEROPENEM 500 MG/NS 100 ML IVPB IV SCH ×2 (06:17)
[2021-10-10 07:58] VITALS: BP 162/70
[2021-10-10] MEDS ORDERED: buPROPion SR 150 MG (WELLBUTRIN SR) TAB PO SCH (08:00)
[2021-10-10] MEDS ORDERED: VANCOMYCIN 500 MG/NS 100 ML IV NR ×2 (08:30)
[2021-10-10] MEDS ORDERED: ASPIRIN 81 MG CHEW (CHILDREN'S ASA) PO SCH (09:00)
[2021-10-10] MEDS ORDERED: NON-FORMULARY MEDICATION 1 EA EA (Linaclotide (Linzess) 290 MCG) PO SCH (09:00)
[2021-10-10] MEDS ORDERED: NON-FORMULARY MEDICATION 1 EA EA (Bupropion HCl (Bupropion Xl) 300 MG) PO SCH (09:00)
[2021-10-10] MEDS ORDERED: busPIRone 5 MG (BUSPAR) TAB PO SCH (09:00)
[2021-10-10 10:51] VITALS: BP 174/72
[2021-10-10] MEDS ORDERED: inSUlin ASPART (NovoLOG) 1 UNIT/0.01 ML (CHARGE PER UNIT) SC SCH (12:00)
[2021-10-10] MEDS: FAMOTIDINE 20MG/2ML IV (PEPCID) IVP SCH (12:02)
[2021-10-10] MEDS: ARTIFICAL TEARS 0.4 ML UNIT DOSE (REFRESH PLUS) OU SCH (12:02)
[2021-10-10] MEDS: SENNOSIDES 8.6 MG (SENOKOT) TAB PO SCH (12:03)
[2021-10-10] MEDS: DOCUSATE SODIUM 100 MG (COLACE) CAP PO SCH (12:03)
[2021-10-10] MEDS: GABAPENTIN 300 MG (NEURONTIN) CAP PO SCH ×2 (12:03→13:45)
[2021-10-10] MEDS: guaiFENesin (MUCINEX) 600 MG TAB PO SCH (12:03)
[2021-10-10] MEDS: toPIRamate 100 MG (TOPAMAX) TAB PO SCH (12:03)
[2021-10-10] MEDS: ENOXAPARIN 100 MG/1 ML (LOVENOX) SYR SC SCH (12:04)
--- NOTE | 2021-10-10 12:22 | Tele-ICU Progress Note ---
Subjective Date Seen by a Provider: Oct 10, 2021 Time Seen by a Provider: 12:22 Sepsis Event Evaluation Height, Weight, BMI Height: '" Weight: lbs. oz. kg; 27.75 BMI Method: Focused Exam Lactate Level 10/08/21 04:23: Lactic Acid Level 1.41 Exam Exam Patient acknowledged, consented, and participated in this virtual visit which was conducted using real time audio/video Vital Signs Date Time Temp Pulse Resp B/P (MAP) Pulse Ox O2 Delivery O2 Flow Rate FiO2 10/10/21 12:00 36.4 10/10/21 10:51 82 36 96 75.00 10/10/21 09:00 93 35 165/83 100 NIV Bilevel 70.00 10/10/21 08:00 84 37 157/71 97 NIV Bilevel 70.00 10/10/21 08:00 36.4 10/10/21 07:58 86 33 96 100.00 10/10/21 07:00 86 162/70 93 NIV Bilevel 70.00 10/10/21 06:43 82 10/10/21 06:00 79 150/74 95 NIV Bilevel 70.00 10/10/21 05:00 84 34 139/70 94 NIV Bilevel 70.00 10/10/21 04:33 NIV Bilevel 70.00 10/10/21 04:00 96 NIV Bilevel 70 10/10/21 04:00 91 18 160/74 91 NIV Bilevel 60.00 10/10/21 03:00 73 32 121/56 91 NIV Bilevel 55.00 10/10/21 02:43 74 35 92 55.00 10/10/21 02:00 70 29 146/58 93 NIV Bilevel 55.00 10/10/21 01:00 67 27 115/64 93 NIV Bilevel 55.00 10/10/21 01:00 67 10/10/21 00:00 96 NIV Bilevel 60 10/10/21 00:00 67 26 134/56 93 NIV Bilevel 55.00 10/09/21 23:00 70 29 149/57 92 NIV Bilevel 55.00 10/09/21 22:48 78 35 98 55.00 10/09/21 22:00 67 26 129/69 95 NIV Bilevel 55.00 10/09/21 21:00 68 39 144/60 97 NIV Bilevel 55.00 10/09/21 20:13 36.1 10/09/21 20:00 96 NIV Bilevel 55 10/09/21 20:00 68 26 158/60 97 NIV Bilevel 55.00 10/09/21 19:30 74 27 97 55.00 10/09/21 19:00 67 27 158/68 97 NIV Bilevel 55.00 10/09/21 19:00 67 10/09/21 18:00 69 29 150/64 97 NIV Bilevel 55.00 10/09/21 17:00 71 31 173/73 97 NIV Bilevel 55.00 10/09/21 16:00 70 29 157/74 98 NIV Bilevel 55.00 10/09/21 16:00 36.1 10/09/21 16:00 96 NIV Bilevel 55 10/09/21 15:07 70 26 94 55.00 10/09/21 15:00 68 31 94 NIV Bilevel 55.00 10/09/21 14:00 70 30 157/64 98 NIV Bilevel 55.00 10/09/21 13:00 71 29 159/67 94 NIV Bilevel 55.00 10/09/21 12:54 75 I & O 10/10/21 06:59 Intake Total 2000 ml Output Total 1250 ml Balance 750 ml Height & Weight Height: '" Weight: lbs. oz. kg; 27.75 BMI Method: General Appearance: No Apparent Distress, WD/WN HEENT: Other (BiPAP in place) Neck: Full Range of Motion, Normal Inspection, Non Tender Respiratory: No Respiratory Distress, Decreased Breath Sounds, Other (wearing BiPAP) Cardiovascular: Regular Rate, Rhythm, No Edema, No Murmur Capillary Refill: Less Than 3 Seconds Extremity: Normal Inspection, Non Tender, No Pedal Edema Neurologic/Psychiatric: Alert, Depressed Affect, Other (fatigued) Skin: Normal Color, Warm/Dry Lymphatic: No Adenopathy Results Lab Laboratory Tests 10/09/21 04:20 10/10/21 04:38 Assessment/Plan Assessment/Plan (Tele-ICU Physician , Progress Note ) Available chart/ vitals / labs / Images reviewed Video assessment done using teleICU camera, rest of exam as per RN Discussed with RN , EXAM PER RN Events overnight : Afebrile FiO2 - 100 % I/O = Drips: Pressors: levo Consultants: Hospital course: 10/07 BIPAP 14//60%. ARF , post COVID 10/10 Bipap 75% A/P AHRF / ARDS due to severe COVID19 -BIPAP 06/05/100 %. rr24 tv 600 MV 11L -prone position if able - conservative fluid strategy (aim for even or negative fluid balance - precedex for comfort [id number]/COVID-19 PNA - dx 3 weeks [facility] ago). unvaccinted --Dexamethasone -Hypercoagulable state -> lovenox full dose 10/07 , US LE + Left calf DVT Monitor for superimposed bact PNA -10/07 Merrem Vanco Anemia = mild , folloow Hypernatremia - Left calf DVT - lovenox 70 bid PER RN- FAMIL;Y IS ON THE WAY -PLANS FOR COMFORT CARE Lines : (Central Line Necessity Reviewed) Ochoa: OG: Nutrition: Analgesia: Anxiety/ delirium VTE Prophylaxis: ronel full dose Stress Ulcer Prophylaxis: Glycemic Control: Plans in collaboration with bedside consultants and IM MDs. Discussed with RN to reach out if any questions or concerns A total of 15 minutes of critical care time was devoted to this patient today, required to treat and/or prevent further deterioration of critical care condition ( as above) . CJ PERKINS MD Oct 10, 2021 12:22
[2021-10-10] MEDS ORDERED: DexMEDEtomidine 250 ML DRIP 250 ML IV SCH (14:00)
[2021-10-10] MEDS ORDERED: DexMEDEtomidine 250 ML DRIP 250 ML IV ONE (14:11)
[2021-10-10] MEDS ORDERED: GLYCOPYRROLATE 0.2 MG/ML (ROBINUL) 2 ML VIAL IV PRN (14:45)
[2021-10-10] MEDS ORDERED: LORazepam INJ 2 MG/ML (ATIVAN) VIAL IVP PRN (14:45)
[2021-10-10] MEDS ORDERED: morphine INJ 4 MG/ML 1 ML (VIAL/SYRINGE) IV PRN (14:45)
[2021-10-10] MEDS ORDERED: PROMETHAZINE INJ 25 MG/ML (PHENERGAN) AMP IVP PRN (14:45)
[2021-10-10] MEDS ORDERED: ONDANSETRON 4 MG/2 ML (SDV) Z0FRAN IVP PRN (14:45)
--- NOTE | 2021-10-10 19:06 | Discharge Summary ---
Discharge Summary Hospital Course Problems/Dx: (1) Acute respiratory failure due to COVID-19 Status: Acute (2) Hypercoagulable state associated with COVID-19 Status: Acute (3) Deep vein thrombosis (DVT) associated with COVID-19 Status: Acute (4) Obesity Status: Chronic (5) HTN (hypertension) Status: Chronic (6) HLD (hyperlipidemia) Status: Chronic (7) T2DM (type 2 diabetes mellitus) Status: Chronic (8) UTI (urinary tract infection) Status: Acute Hospital Course Date of Admission: Oct 08, 2021 at 01:52 Admission Diagnosis : Acute respiratory failure due to COVID-19 Family Physician/Provider: January Connors Physician Date of Discharge: 10/10/21 Discharge Diagnosis: Acute respiratory failure due to COVID-19 Hospital Course: Sienna Mckeon was a 76 year old female with PMH HTN, HLD, T2DM, dementia, who was admitted with acute respiratory failure due to COVID-19. She was treated with steroids. Her course was complicated by venous thromboembolism. She was found to have a DVT and presumed PE. She required BiPAP. Her oxygen requirements continued to worsen. She was receiving max oxygen via BiPAP but was still tachypneic and attempting to remove her BiPAP. After a discussion with her daughter, the decision was made to transition her to comfort measures only. She subsequently at 1604 on 10/10/2020. Labs and Pending Lab Test: Laboratory Tests 10/09/21 20:46: Glucometer 217H 10/10/21 04:38: White Blood Count 12.3H, Red Blood Count 4.30, Hemoglobin 10.7L, Hematocrit 35, Mean Corpuscular Volume 81, Mean Corpuscular Hemoglobin 25, Mean Corpuscular Hemoglobin Concent 31L, Red Cell Distribution Width 17.8H, Platelet Count 250, Mean Platelet Volume 10.4, Immature Granulocyte % (Auto) 1, Neutrophils (%) (Auto) 93H, Lymphocytes (%) (Auto) 4L, Monocytes (%) (Auto) 2, Eosinophils (%) (Auto) 0, Basophils (%) (Auto) 0, Neutrophils # (Auto) 11.4H, Lymphocytes # (Auto) 0.4L, Monocytes # (Auto) 0.3, Eosinophils # (Auto) 0.0, Basophils # (Auto) 0.0, Immature Granulocyte # (Auto) 0.1, Sodium Level 150H, Potassium Level 3.2L, Chloride Level 118H, Carbon Dioxide Level 18L, Anion Gap 14, Blood Urea Nitrogen 31H, Creatinine 0.77, Estimat Glomerular Filtration Rate 79, BUN/Creatinine Ratio 40, Glucose Level 247H, Calcium Level 7.9L, Corrected Calcium 9.4, Phosphorus Level 1.3L, Magnesium Level 1.7, Total Bilirubin 0.4, Aspartate Amino Transf (AST/SGOT) 18, Alanine Aminotransferase (ALT/SGPT) 11, Alkaline Phosphatase 91, Total Protein 5.8L, Albumin 2.1L, Vancomycin Level Trough 10.3 10/10/21 11:58: Glucometer 254H Microbiology 10/08/21 MRSA Screen - Final, Complete Home Meds Active Reported Magnesium Citrate 296 Ml Solution 296 Ml PO DAILY PRN GIVE IF PT HAS NO RESULTS FROM MOM Ondansetron HCl 4 Mg Tablet 4 Mg PO Q6H PRN Tylenol Extra Strength (Acetaminophen) 500 Mg Tablet 1,000 Mg PO Q8H PRN Trazodone HCl 100 Mg Tablet 100 Mg PO HS Topiramate 50 Mg Tablet 100 Mg PO BID TAKES 2 (50MG) TABS Sumatriptan 5 Mg Hanover 1 Hanover NS EVERY 2 HOURS PRN MDD 40MG ONE SPRAY IN 1 NARE ONLY Guaifenesin Dm Syrup (Guaifenesin/Dextromethorphan) 5 Ml Syrup 10 Ml PO Q4H PRN Potassium Chloride 20 Meq Tab.er.prt 20 Meq PO DAILY Omeprazole 40 Mg Capsule.dr 80 Mg PO DAILY TAKES 2 (40MG) CAPS Nystop (Nystatin) 60 Gm Powder 1 Applic TOP UD PRN APPLY TO RED AREA UNDER BREAST AND ABDOMINAL FOLD Nystatin 15 Gm Cream..g. 1 Applic TOP Q8H PRN Novolog Flexpen (Insulin Aspart) 300 Units/3 Ml Solution 10 Units SC AC HOLD AND CALL PCP IF FSBS IS LESS TNAN 70 OR GREATER THAN 400 FOR MORE ORDERS Multivitamin 1 Each Tablet 1 Each PO DAILY Mirtazapine 45 Mg Tablet 45 Mg PO HS Milk of Magnesia (Magnesium Hydroxide) 400 Mg/5 Ml Oral.susp 30 Ml PO DAILY PRN Melatonin 3 Mg Tablet 3 Mg PO HS Magnesium (Magnesium Oxide) 400 Mg Tablet 400 Mg PO DAILY Atorvastatin Calcium 20 Mg Tablet 20 Mg PO HS Linzess (Linaclotide) 290 Mcg Capsule 290 Mcg PO DAILY Levemir Flextouch (Insulin Detemir) 100 Unit/1 Ml Insuln.pen 20 Units SC HS Hydrocodone-Acetamin 5-325 mg (Hydrocodone/Acetaminophen) 1 Each Tablet 1 Ea PO Q6H PRN Neurontin (Gabapentin) 300 Mg Capsule 300 Mg PO TID Folic Acid 1 Mg Tablet 1 Mg PO DAILY Bisacodyl 10 Mg Supp.rect 10 Mg RC DAILY PRN Cranberry (Cranberry Extract) 250 Mg Capsule 250 Mg PO QID Buspirone HCl 5 Mg Tablet 5 Mg PO DAILY Buspirone HCl 5 Mg Tablet 2.5 Mg PO HS TAKES OF A 5MG TAB Bupropion Xl (Bupropion HCl) 300 Mg Tab.er.24h 300 Mg PO DAILY Aspirin 81 Mg Tab.chew 81 Mg PO DAILY Artificial Tears 15 Ml Soln 1 Drop OU BID Amitriptyline HCl 10 Mg Tablet 10 Mg PO HS Albuterol Sulfate 2.5 Mg/0.5 Ml Vial.neb 2.5 Mg INH Q6H PRN Assessment/Pt Instructions Patient Discharge Physical Examination Vital Signs Vital Signs Date Time Temp Pulse Resp B/P (MAP) Pulse Ox O2 Delivery O2 Flow Rate FiO2 10/10/21 15:00 73 32 116/64 97 NIV Bilevel 70.00 10/10/21 12:00 36.4 10/10/21 04:00 70 Allergies: Coded Allergies: Sulfa (Sulfonamide Antibiotics) (Verified Allergy, Unknown, 10/08/21) codeine (Verified Allergy, Unknown, 10/07/21) Uncoded Allergies: contrast dye (Allergy, Unknown, 10/08/21) Discharge Summary Date of Admission Oct 08, 2021 at 01:52 Date of Discharge Discharge Date: Oct 10, 2021 Admission Diagnosis Acute respiratory failure due to COVID-19 Comfort Measures/ End of Life Care: Comfort Measures Advance Care discuss with: family member (s) Plan: initiate discussion, clarifying prognosis, identified end-of-life goals, developed treatment plan Cardiopulmonary Arrest: Cardiorespiratory Arrest Date of : Oct 10, 2021 Time of : 16:04 Discharge Diagnosis Acute respiratory failure due to COVID-19 Hypercoagulable state associated with COVID-19 DVT associated with COVID-19 (1) Acute respiratory failure due to COVID-19 Status: Acute (2) Hypercoagulable state associated with COVID-19 Status: Acute (3) Deep vein thrombosis (DVT) associated with COVID-19 Status: Acute (4) Obesity Status: Chronic (5) HTN (hypertension) Status: Chronic (6) HLD (hyperlipidemia) Status: Chronic (7) T2DM (type 2 diabetes mellitus) Status: Chronic (8) UTI (urinary tract infection) Status: Acute ROSETTA CANTU MD Oct 10, 2021 19:04
[2021-10-11] MEDS ORDERED: TROUGH ORDER-PHARMACY XX NR (05:00)
[2021-10-11] MEDS ORDERED: VANCOMYCIN 1250 MG/NS 250 ML IVPB IV SCH ×2 (06:00)
== END 2021-10-10 20:28 | disposition expired | DRG 177 ==
LOC: ICU 10-08 01:52
PROVIDERS: ADMIT Internal Medicine; ATTEND Internal Medicine
PROC: 5A09457 Assistance with Respiratory Ventilation, 24-96 Consecutive Hours, Continuous Positive Airway Pressure (ICD-10-PCS; principal; 2021-10-08)
DX: U07.1 COVID-19 (principal); J12.82 Pneumonia due to coronavirus disease 2019; J80 Acute respiratory distress syndrome; J15.9 Unspecified bacterial pneumonia; I21.A1 Myocardial infarction type 2; D68.69 Other thrombophilia; N39.0 Urinary tract infection, site not specified; E87.0 Hyperosmolality and hypernatremia; I82.4Z2 Acute embolism and thrombosis of unspecified deep veins of left distal lower extremity; E66.9 Obesity, unspecified; I10 Essential (primary) hypertension; Z66 Do not resuscitate; E11.9 Type 2 diabetes mellitus without complications; F03.90 Unspecified dementia, unspecified severity, without behavioral disturbance, psychotic disturbance, mood disturbance, and anxiety; Z51.5 Encounter for palliative care; B96.20 Unspecified Escherichia coli [E. coli] as the cause of diseases classified elsewhere; D64.9 Anemia, unspecified; E78.00 Pure hypercholesterolemia, unspecified; K21.9 Gastro-esophageal reflux disease without esophagitis; K58.9 Irritable bowel syndrome, unspecified; K59.00 Constipation, unspecified; G89.29 Other chronic pain; F41.9 Anxiety disorder, unspecified; F32.A Depression, unspecified; Z68.30 Body mass index [BMI] 30.0-30.9, adult
CPT/HCPCS: 36415; 36569; 71045; 76937; 80053; 80202; 82805; 82947; 83605; 83735; 84100; 84145; 84484; 85007; 85025; 85027; 85379; 87081; 93005; 93306; 93970; 94640; 94660